=== PATIENT | female | born 1950 | race Caucasian/White ===

== ENCOUNTER 2016-05-21 16:13 | Emergency (ER) | payer MEDICARE ==
[~2016-05-21] VITALS: Ht 157.5 cm; Wt 75.2 kg
[~2016-05-21 16:13] MED LIST: KETO10 PO; MULTCAP2 PO
[2016-05-21 16:20] VITALS: BP 185/95; PULSE 78; RESP 16; TEMP 98.1; O2SAT 96
[2016-05-21] MEDS ORDERED: NAPR220T95 PO (16:36)
--- NOTE | 2016-05-21 17:49 | RADHPO ---
EXAM DATE/TIME: 05/21/2016 17:15 [facility] COMPARISON: No previous studies available for comparison. INDICATIONS : Low back pain with no history of trauma. MEDICAL HISTORY : None. SURGICAL HISTORY : None. ENCOUNTER: Initial ACUITY: 1 month PAIN SCORE: 7/10 LOCATION: Bilateral back FINDINGS: There are five non-rib bearing vertebral bodies. The vertebral bodies are in normal alignment withou t evidence of subluxation or scoliosis. Vacuum disc phenomenon at the lumbosacral junction. No acute fracture or listhesis. Surgical clips in the right upper abdominal quadrant are characteristic of aneesh or cholecystectomy. CONCLUSION: 1. Degenerative disc disease most prominent at the lumbosacral junction with loss of disc height and vacuum disc phenomenon. 2. No acute fracture. Vidal Aguero MD on May 21, 2016 at 17:46 Board Certified Radiologist. This report was verified electronically.
--- NOTE | 2016-05-21 17:51 | RADHPO ---
EXAM DATE/TIME: 05/21/2016 17:17 [facility] COMPARISON: No previous studies available for comparison. INDICATIONS : Right hip pain with no history of trauma. MEDICAL HISTORY : None. SURGICAL HISTORY : None. ENCOUNTER: Initial ACUITY: 2 weeks PAIN SCORE: 7/10 LOCATION: Right hip FINDINGS: Examination of the right hip was performed with AP Pelvis. The primary and secondary trabecular augusto bushra of the femoral neck is intact. The hip joint is of normal width without significant sclerosis or bony hypertrophy. The acetabulum is grossly intact. Well-corticated ossification adjacent to the gr eater trochanter is characteristic of an accessory ossification or old avulsion injury. There is some calcification adjacent to the lesser trochanter as well characteristic of calcific tendinopathy CONCLUSION: 1. No acute fracture. 2. Well-corticated ossification adjacent to the greater trochanter characteristic of an old avulsion injury or accessory ossification. 3. Calcific tendinopathy in the region of the lesser trochanter Vidal Aguero MD on May 21, 2016 at 17:48 Board Certified Radiologist. This report was verified electronically.
--- NOTE | 2016-05-21 18:04 | RADHPO ---
EXAM DATE/TIME: 05/21/2016 17:22 [facility] COMPARISON: No previous studies available for comparison. INDICATIONS : Neck pain with no history of trauma. MEDICAL HISTORY : None. SURGICAL HISTORY : None. ENCOUNTER: Initial ACUITY: 3 weeks PAIN SCORE: 9/10 LOCATION: Bilateral neck FINDINGS: Two projection examination was performed. There is multilevel degenerative disc disease with loss of disc height most prominent at C3-4, C5-6 and C6-7. Prominent anterior spurs are most obvious at C5-6 and C6-7. Grade 1 anterolisthesis of C2 on 3, C3 on 4 and C4-5 is probably due to marked facet hypert rophy and degeneration. Vertebral body heights are maintained without acute fracture. Prevertebral soft tissues are within no rmal limits. Dens is intact and the lateral masses are symmetric. CONCLUSION: 1. Multilevel degenerative disc disease with loss of disc height at C3-4, C5-6 and C6-7. 2. Grade 1 anterolisthesis of C2 on 3, C3 on 4 and C4 on 5 probably due to marked facet hypertrophy a nd degeneration. 3. No acute fracture. Vidal Aguero MD on May 21, 2016 at 18:01 Board Certified Radiologist. This report was verified electronically.
[2016-05-21] MEDS ORDERED: PRED20 PO (18:07)
--- NOTE | 2016-05-21 18:07 | PD ---
HPI Chief Complaint: Musculoskeletal Complaint Time Seen by Provider: 16:54 Travel History International Travel<30 days: No Contact w/Intl Traveler<30days: No Traveled to known affect area: No History of Present Illness HPI Patient 66-year-old female presents emergency department for pain she first noticed from her low back radiating down her right leg the past few months associated with some numbness and tingling in now with some numbness tingling of her right upper extremity as well. Patient states that she wanted to come in and be seen make sure it wasn't anything more severe. Denies any perianal numbness. Denies any weakness in hands or feet. She is able to walk although painfully. Denies any acute traumatic injury nor any sudden onset of pain. PFSH Past Medical History Arthritis: Yes (RIGHT great toe) Blood Disorders: No Anxiety: No Depression: No Heart Rhythm Problems: No Cancer: Yes (RENAL) Cardiac Catheterization: Yes ([address] HANKINS) Cardiovascular Problems: Yes (LBB-EKG) High Cholesterol: Yes Chest Pain: Yes Congestive Heart Failure: No Diabetes: No Diminished Hearing: No Endocrine: No Genitourinary: No Hypertension: Yes Immune Disorder: No Musculoskeletal: Yes Neurologic: No Psychiatric: No Reproductive: No Respiratory: No Myocardial Infarction: No Influenza Vaccination: No ?: Not Menopausal: Yes Past Surgical History Abdominal Surgery: Yes (gall bladder removed) Cholecystectomy: Yes Coronary Artery Bypass Graft: No Genitourinary Surgery: Yes (RIGHT NEPHRECTOMY) Oral Surgery: Yes (TONSILLECTOMY) Tonsillectomy: Yes Other Surgery: Yes Social History Alcohol Use: Yes (SOCIAL) Tobacco Use: No Substance Use: No Allergies-Medications (Allergen,Severity, Reaction): Coded Allergies: Sulfa (Verified Allergy, Mild, 05/25/16) Reported Meds & Prescriptions Reported Meds & Active Scripts Active [place] (Hydrocodone-Acetaminophen) 5-325 mg Tab 1 Tab PO Q6H PRN Prednisone 20 Mg Tab 60 Mg PO DAILY Reported Aleve (Naproxen Sodium) 220 Mg Tab 220 Mg PO BID PRN Review of Systems Except as stated in HPI: all other systems reviewed are Neg Physical Exam Narrative GENERAL: Well-developed well-nourished no apparent distress. SKIN: Warm and dry. HEAD: Atraumatic. Normocephalic. EYES: Pupils equal and round. No scleral icterus. No injection or drainage. ENT: No nasal bleeding or discharge. Mucous membranes pink and moist. NECK: Trachea midline. No JVD. CARDIOVASCULAR: Regular rate and rhythm. No murmur appreciated. RESPIRATORY: No accessory muscle use. Clear to auscultation. Breath sounds equal bilaterally. GASTROINTESTINAL: Abdomen soft, non-tender, nondistended. Hepatic and splenic margins not palpable. MUSCULOSKELETAL: No obvious deformities. No clubbing. No cyanosis. No edema. No midline CT or L-spine tenderness. There is no tenderness at either hip either shoulder either of either knee. She is able to ambulate with some antalgic gait. 5 out of 5 strength distally in all 4 extremities. Pulses motor and sensory intact distally in all 4 tremors. Compartments soft. No evidence of trauma. NEUROLOGICAL: Awake and alert. No obvious cranial nerve deficits. Motor grossly within normal limits. Normal speech. PSYCHIATRIC: Appropriate mood and affect; insight and judgment normal. Data Data Last Documented VS Orders Spine, Lumbar Comp W/Obliq (05/21/16 ) Hip, Uni(Ap&Lat) W Ap Pelvis (05/21/16 ) Spine, Cervical - Ltd (Ap&Lat) (05/21/16 ) Acetaminophen (Tylenol) (05/21/16 18:15) MDM Medical Decision Making Medical Screen Exam Complete: Yes Emergency Medical Condition: Yes Differential Diagnosis Degenerative disc disease, arthritis, radiculopathy cervical, radiculopathy lumbar. Narrative Course Patient roomed in the emergency department, she was given pain medicine and taken to x-ray showing the following results. Last 24 hours Impressions Lumbar Spine X-Ray 05/21/16 0000 Signed Impressions: Service Date/Time: Saturday, May 21, 2016 17:15 - CONCLUSION: 1. Degenerative disc disease most prominent at the lumbosacral junction with loss of disc height and vacuum disc phenomenon. 2. No acute fracture. Vidal Aguero MD Hip and Pelvis X-Ray 05/21/16 0000 Signed Impressions: Service Date/Time: Saturday, May 21, 2016 17:17 - CONCLUSION: 1. No acute fracture. 2. Well-corticated ossification adjacent to the greater trochanter characteristic of an old avulsion injury or accessory ossification. 3. Calcific tendinopathy in the region of the lesser trochanter Vidal Aguero MD Cervical Spine X-Ray 05/21/16 0000 Signed Impressions: Service Date/Time: Saturday, May 21, 2016 17:22 - CONCLUSION: 1. Multilevel degenerative disc disease with loss of disc height at C3-4, C5-6 and C6-7. 2. Grade 1 anterolisthesis of C2 on 3, C3 on 4 and C4 on 5 probably due to marked facet hypertrophy and degeneration. 3. No acute fracture. Vidal Aguero MD Discussed findings with the patient and recommended following up the primary care physician for consideration of MRIs of her symptoms do not resolve pH she was placed on steroids. Discussed with her return to ED criteria. She has no significant evidence for cauda equina and no indication for further workup here in the emergency department. We'll place on short course steroids. Diagnosis Primary Impression: DDD (degenerative disc disease), lumbar Additional Impression: DDD (degenerative disc disease), cervical Additional Instructions: Multiple slipped disks in the lumbar region and vacuum effect, loose causing her lower extremity symptoms. Patient has significant arthritis in her cervical spine as well a be leading to upper extremity symptoms. May benefit from outpatient MRI. Scripts Hydrocodone-Acetaminophen ([place])5-325 mg Tab1 Tab PO Q6H PRN (PAIN) #10 TAB Ref 0 Prov:Dany Vasquez MD 05/21/16 Prednisone 20 Mg Tab60 Mg PO DAILY #5 TAB Ref 0 Prov:Dany Vasquez MD 05/21/16 Disposition: 01 DISCHARGE HOME Condition: Stable Dany Vasquez MD May 21, 2016 18:07
[2016-05-21] MEDS ORDERED: NORC5TAB PO (18:15)
[2016-05-21] MEDS ORDERED: ACETAMINOPHEN 325 MG TAB PO ONE (18:15)
--- NOTE | 2016-05-21 18:15 | PD ---
HPI Chief Complaint: Musculoskeletal Complaint Time Seen by Provider: 16:54 Travel History International Travel<30 days: No Contact w/Intl Traveler<30days: No Traveled to known affect area: No PFSH Past Medical History Arthritis: Yes (RIGHT great toe) Blood Disorders: No Anxiety: No Depression: No Heart Rhythm Problems: No Cancer: Yes (RENAL) Cardiac Catheterization: Yes ([address] HANKINS) Cardiovascular Problems: Yes (LBB-EKG) High Cholesterol: Yes Chest Pain: Yes Congestive Heart Failure: No Diabetes: No Diminished Hearing: No Endocrine: No Genitourinary: No Hypertension: Yes Immune Disorder: No Musculoskeletal: Yes Neurologic: No Psychiatric: No Reproductive: No Respiratory: No Myocardial Infarction: No Influenza Vaccination: No ?: Not Menopausal: Yes Past Surgical History Abdominal Surgery: Yes (gall bladder removed) Cholecystectomy: Yes Coronary Artery Bypass Graft: No Genitourinary Surgery: Yes (RIGHT NEPHRECTOMY) Oral Surgery: Yes (TONSILLECTOMY) Tonsillectomy: Yes Other Surgery: Yes Social History Alcohol Use: Yes (SOCIAL) Tobacco Use: No Substance Use: No Allergies-Medications (Allergen,Severity, Reaction): Coded Allergies: Sulfa (Verified Allergy, Mild, 05/25/16) Reported Meds & Prescriptions Reported Meds & Active Scripts Active [place] (Hydrocodone-Acetaminophen) 5-325 mg Tab 1 Tab PO Q6H PRN Prednisone 20 Mg Tab 60 Mg PO DAILY Reported Aleve (Naproxen Sodium) 220 Mg Tab 220 Mg PO BID PRN Data Data Last Documented VS Orders Spine, Lumbar Comp W/Obliq (05/21/16 ) Hip, Uni(Ap&Lat) W Ap Pelvis (05/21/16 ) Spine, Cervical - Ltd (Ap&Lat) (05/21/16 ) Acetaminophen (Tylenol) (05/21/16 18:15) MDM Medical Decision Making Medical Screen Exam Complete: Yes Emergency Medical Condition: Yes Diagnosis Primary Impression: DDD (degenerative disc disease), lumbar Additional Impression: DDD (degenerative disc disease), cervical Referrals: Gordon Chow MD (PCP) 3 days Patient Instructions: General Instructions, Degenerative Disc Disease (ED) Departure Forms: Tests/Procedures Additional Instructions: Multiple slipped disks in the lumbar region and vacuum effect, loose causing her lower extremity symptoms. Patient has significant arthritis in her cervical spine as well a be leading to upper extremity symptoms. May benefit from outpatient MRI. Med/Other Pt SpecificInfo: Prescription(s) given Scripts Hydrocodone-Acetaminophen ([place])5-325 mg Tab1 Tab PO Q6H PRN (PAIN) #10 TAB Ref 0 Prov:Dany Vasquez MD 05/21/16 Prednisone 20 Mg Tab60 Mg PO DAILY #5 TAB Ref 0 Prov:Dany Vasquez MD 05/21/16 Disposition: 01 DISCHARGE HOME Condition: Stable Dany Vasquez MD May 21, 2016 18:15 Prednisone 20 Mg Tab60 Mg PO DAILY #5 TAB Ref 0 Prov:Dany Vasquez MD 05/21/16 Disposition: 01 DISCHARGE HOME Condition: Stable Dany Vasquez MD May 21, 2016 18:15
[2016-07-18] MEDS ORDERED: TRAM50TA PO (12:31)
[2016-07-25] MEDS ORDERED: HYDR-4107 PO (13:59)
[2016-07-31] MEDS ORDERED: CIPR250T52 PO ×2 (09:15→09:18)
[2016-07-31] MEDS ORDERED: HYDR-4107 PO (09:16)
[2016-08-27] MEDS ORDERED: HYDR-3516 (14:30)
[2016-08-27] MEDS ORDERED: NAPR220C22 PO (14:30)
[2016-08-27] MEDS ORDERED: ZINC10LO4 PO (14:32)
[2016-08-27] MEDS ORDERED: MULTTAB67 PO (14:32)
[2016-08-27] MEDS ORDERED: FIBE625T10 PO (14:32)
[2016-08-27] MEDS ORDERED: HYDR-4107 PO (15:09)
== END 2016-05-21 18:27 | disposition home or self-care (01) ==
LOC: PHEFT 16:13
DX: M51.36 Other intervertebral disc degeneration, lumbar region (principal); E78.00 Pure hypercholesterolemia, unspecified; I10 Essential (primary) hypertension
CPT/HCPCS: 72040; 72110; 73502; 99284

== ENCOUNTER 2016-05-25 08:24 | Inpatient (IN) | payer MEDICARE ==
[~2016-05-25] VITALS: Ht 157.5 cm; Wt 78.9 kg
[~2016-05-25 08:24] MED LIST changes: -KETO10 PO; -MULTCAP2 PO; +NAPR220T95 PO; +NORC5TAB PO; +PRED20 PO
[2016-05-25 08:38] VITALS: BP 111/62; PULSE 43; RESP 22; TEMP 98.4; O2SAT 99
[2016-05-25 09:26] VITALS: BP 145/75; PULSE 56; RESP 16; O2SAT 98
[2016-05-25] MEDS ORDERED: ONDANSETRON HCL 4 MG/2 ML VIAL IV ONE (10:00)
[2016-05-25] MEDS ORDERED: SODIUM CHLOR 0.9% 1000 ML INJ 1,000 ML IV SCH (10:00)
[2016-05-25] MEDS ORDERED: MORPHINE SULFATE 4 MG/ML INJ IV PUSH ONE (10:00)
[2016-05-25] MEDS ORDERED: FAMOTIDINE 20 MG/2 ML VIAL IV PUSH STA (10:00)
[2016-05-25 10:21] LABS: BLOOD, URINE NEG (NEG); GLUCOSE,URINE NEG (NEG); KETONE, URINE NEG (NEG); NITRITE,URINE NEG (NEG); PH, URINE 5.5 (5.0-8.5)
[2016-05-25 10:23] LABS: AUTOMATED NEUTROPHIL # 8.2 TH/MM3 (1.8-7.7); BASOPHIL # 0.1 TH/MM3 (0-0.2); BASOPHIL % 0.5 % (0.0-2.0); EOSINOPHIL # 0.1 TH/MM3 (0-0.4); EOSINOPHIL % 1.2 % (0.0-4.0); HEMATOCRIT 42.3 % (35.0-46.0); LYMPH % 18.5 % (9.0-44.0); MEAN CELL VOLUME 86.7 FL (80.0-100.0); MEAN CORPUSCULAR HEMOGLOBIN 28.2 PG (27.0-34.0); MEAN CORPUSCULAR HGB CONC 32.5 % (32.0-36.0); MONO % 5.3 % (0.0-8.0); NEUT % 74.5 % (16.0-70.0); PLATELET COUNT 276 TH/MM3 (150-450); RED BLOOD COUNT 4.88 MIL/MM3 (4.00-5.30); RED CELL DISTRIBUTION WIDTH 13.3 % (11.6-17.2)
[2016-05-25 10:24] LABS: HEMO FLAGS DIFF FINAL
[2016-05-25 10:29] LABS: METHOD OF COLLECTION CLEAN CATCH; URINE COLOR YELLOW (YELLW/STRAW); WBC, URINE 0-2 /hpf (0-5)
--- NOTE | 2016-05-25 10:37 | PD ---
HPI Chief Complaint: Abdominal Pain Time Seen by Provider: 09:49 Travel History International Travel<30 days: No Contact w/Intl Traveler<30days: No Traveled to known affect area: No History of Present Illness HPI Is a 66 year-old woman who presents to the emergency department complaining of epigastric abdominal pain associated with nausea this started early this morning. She is a history of pancreatitis and states this feels somewhat similar. She otherwise has been feeling generally well and healthy. Some but no clear etiology for her previous episodes were identified. She had her gallbladder taken out when she had a right nephrectomy in 2009. She drinks alcohol rarely. She's not had any change in her bowel movements. She otherwise had been feeling generally well and healthy. She was seen earlier this week for back pain, and was given a prescription for steroids and for opiates. She is not taking any NSAIDs. She does take medicine for GERD, sounds like ranitidine. History Past Medical History Narrative Medical Hypertension GERD Known left bundle-branch block Menopausal: Yes Social History Alcohol Use: Yes (SOCIAL) Tobacco Use: No Allergies-Medications (Allergen,Severity, Reaction): Coded Allergies: Sulfa (Verified Allergy, Mild, 05/25/16) Reported Meds & Prescriptions Reported Meds & Active Scripts Active [place] (Hydrocodone-Acetaminophen) 5-325 mg Tab 1 Tab PO Q6H PRN Prednisone 20 Mg Tab 60 Mg PO DAILY Reported Aleve (Naproxen Sodium) 220 Mg Tab 220 Mg PO BID PRN Review of Systems Except as stated in HPI: all other systems reviewed are Neg Physical Exam Narrative GENERAL: Well-appearing 66 year-old woman, appears uncomfortable but nontoxic. SKIN: Warm and dry. HEAD: Atraumatic. Normocephalic. EYES: Pupils equal and round. No scleral icterus. No injection or drainage. ENT: No nasal bleeding or discharge. Mucous membranes pink and moist. NECK: Trachea midline. No JVD. CARDIOVASCULAR: Regular rate and rhythm. No murmur appreciated. RESPIRATORY: No accessory muscle use. Clear to auscultation. Breath sounds equal bilaterally. GASTROINTESTINAL: Abdomen is flat and soft. She has moderate epigastric tenderness. No rebound or guarding. MUSCULOSKELETAL: No obvious deformities. No edema. NEUROLOGICAL: Awake and alert. No obvious cranial nerve deficits. Motor grossly within normal limits. Normal speech. PSYCHIATRIC: Appropriate mood and affect; insight and judgment normal. Data Data Last Documented VS Vital Signs Date Time Temp Pulse Resp B/P Pulse Ox O2 Delivery O2 Flow Rate FiO2 05/25/16 09:26 56 16 145/75 98 05/25/16 08:38 98.4 Room Air Orders Complete Blood Count With Diff (05/25/16 10:00) Comprehensive Metabolic Panel (05/25/16 10:00) Lipase (05/25/16 10:00) Ua Includes Microscopic (05/25/16 10:00) Iv Access Insert/Monitor (05/25/16 10:00) Sodium Chlor 0.9% 1000 Ml Inj (Ns 1000 M (05/25/16 10:00) Ondansetron Inj (Zofran Inj) (05/25/16 10:00) Morphine Inj (Morphine Inj) (05/25/16 10:00) Famotidine Inj (Pepcid Inj) (05/25/16 10:00) Admit Order (Ed Use Only) (05/25/16 ) Labs Laboratory Tests Test 05/25/16 10:09 White Blood Count 11.0 TH/MM3 Red Blood Count 4.88 MIL/MM3 Hemoglobin 13.8 GM/DL Hematocrit 42.3 % Mean Corpuscular Volume 86.7 FL Mean Corpuscular Hemoglobin 28.2 PG Mean Corpuscular Hemoglobin 32.5 % Concent Red Cell Distribution Width 13.3 % Platelet Count 276 TH/MM3 Mean Platelet Volume 8.0 FL Neutrophils (%) (Auto) 74.5 % Lymphocytes (%) (Auto) 18.5 % Monocytes (%) (Auto) 5.3 % Eosinophils (%) (Auto) 1.2 % Basophils (%) (Auto) 0.5 % Neutrophils # (Auto) 8.2 TH/MM3 Lymphocytes # (Auto) 2.0 TH/MM3 Monocytes # (Auto) 0.6 TH/MM3 Eosinophils # (Auto) 0.1 TH/MM3 Basophils # (Auto) 0.1 TH/MM3 CBC Comment DIFF FINAL Differential Comment Urine Collection Type CLEAN CATCH Urine Color YELLOW Urine Turbidity CLEAR Urine pH 5.5 Urine Specific [place] 1.025 Urine Protein TRACE mg/dL Urine Glucose (UA) NEG mg/dL Urine Ketones NEG mg/dL Urine Occult Blood NEG Urine Nitrite NEG Urine Bilirubin NEG Urine Leukocyte Esterase NEG Urine WBC 0-2 /hpf Urine Squamous Epithelial 6-8 /hpf Cells Urine Collection Time 10:09 Sodium Level 145 MEQ/L Potassium Level 3.7 MEQ/L Chloride Level 109 MEQ/L Carbon Dioxide Level 26.3 MEQ/L Anion Gap 10 MEQ/L Blood Urea Nitrogen 32 MG/DL Creatinine 1.20 MG/DL Estimat Glomerular Filtration 45 ML/MIN Rate Random Glucose 109 MG/DL Calcium Level 8.6 MG/DL Total Bilirubin 0.3 MG/DL Aspartate Amino Transf 99 U/L (AST/SGOT) Alanine Aminotransferase 77 U/L (ALT/SGPT) Alkaline Phosphatase 90 U/L Total Protein 6.8 GM/DL Albumin 3.6 GM/DL Lipase 15747 U/L [facility] Medical Decision Making Medical Screen Exam Complete: Yes Emergency Medical Condition: Yes Interpretation(s) LABS: CBC unremarkable. CMP remarkable for elevated BUN/creatinine Lipase 21,000 UA unremarkable. Differential Diagnosis Pancreatitis, gastritis, reflux, indigestion, other Narrative Course Medical decision making INITIAL: 66 year-old woman who presents to the emergency department complaining of epigastric abdominal pain, with nausea, suggestive of gastritis or pancreatitis. We'll check labs, fluids, pain control, reassess. Diagnosis Primary Impression: Acute pancreatitis Fuad Stein MD May 25, 2016 10:37
[2016-05-25 10:41] LABS: CHLORIDE 109 MEQ/L (98-107); POTASSIUM 3.7 MEQ/L (3.5-5.1); SODIUM (NA) 145 MEQ/L (136-145)
[2016-05-25 10:44] LABS: ANION GAP 10 MEQ/L (5-15); BICARBONATE 26.3 MEQ/L (21.0-32.0)
[2016-05-25 10:45] LABS: BLOOD UREA NITROGEN 32 MG/DL (7-18)
[2016-05-25 10:47] LABS: ALT (GPT) 77 U/L (10-53); AST (GOT) 99 U/L (15-37); GLOMERULAR FILTRATION RATE 45 ML/MIN (>89)
[2016-05-25 10:49] LABS: TOTAL BILIRUBIN ADULT 0.3 MG/DL (0.2-1.0)
[2016-05-25 10:50] LABS: ALKALINE PHOSPHATASE 90 U/L (45-117)
[2016-05-25] MEDS ORDERED: NALOXONE HCL 0.4 MG/ML AMP IV PRN (11:15)
[2016-05-25] MEDS ORDERED: MORPHINE SULFATE 4 MG/ML INJ IV PRN (11:15)
[2016-05-25] MEDS: NS + KCL 20 MEQ INJ 1,000 ML IV SCH ×2 (11:36→21:48)
[2016-05-25 13:05] VITALS: BP 126/72; PULSE 78; RESP 18; O2SAT 98
[2016-05-25] MEDS: MORPHINE SULFATE 4 MG/ML INJ IV PRN ×2 (13:19→19:59)
[2016-05-25 14:30] VITALS: BP 142/74; PULSE 58; RESP 20; TEMP 96; O2SAT 97
[2016-05-25 16:00] VITALS: BP 122/75; PULSE 60; RESP 20; TEMP 97.2; O2SAT 97
--- NOTE | 2016-05-25 18:17 | HHI.HP ---
cc: Gordon Chow MD [facility] Gordon Chow MD Admission Diagnosis acute pancreatitis Diagnoses: (1) Acute pancreatitis Chief Complaint: Abdominal pain Travel History International Travel<30 Days: No Contact w/Intl Traveler <30 Da: No Traveled to Known Affected Are: No History of Present Illness The patient is a 66-year-old female who presented to the emergency department complaining of severe midepigastric abdominal pain associated with nausea. The pain started this morning. She states that she had been feeling well yesterday. No vomiting, diarrhea, constipation. She has had acute pancreatitis in the past requiring hospitalization. She has had a cholecystectomy. Only reports occasional alcohol use. She states that her pain is currently well controlled with morphine. Review of Systems Constitutional: DENIES: Fever, Chills, Night Sweats Eyes: DENIES: Blurred vision, Vision loss Ears, nose, mouth, throat: DENIES: Hearing loss Respiratory: DENIES: Cough, Wheezing, Sputum production, Shortness of breath Cardiovascular: DENIES: Chest pain, Palpitations, Dyspnea on Exertion, Lower Extremity Edema Gastrointestinal: COMPLAINS OF: Abdominal pain, Nausea, DENIES: Constipation, Diarrhea, Vomiting Genitourinary: DENIES: Urinary frequency, Urinary incontinence, Urgency, Hematuria, Dysuria, Nocturia Musculoskeletal: DENIES: Joint pain, Muscle aches Integumentary: DENIES: Pruritus, Rash Hematologic/lymphatic: DENIES: Bruising Neurologic: DENIES: Headache Past Family Social History Past Medical History Hypertension GERD Left bundle branch block History of pancreatitis History of kidney cancer Degenerative disc disease Past Surgical History Cholecystectomy Right nephrectomy Reported Medications [place] (Hydrocodone-Acetaminophen) 5-325 mg Tab 1 Tab PO Q6H PRN Prednisone 20 Mg Tab 60 Mg PO DAILY Aleve (Naproxen Sodium) 220 Mg Tab 220 Mg PO BID PRN Allergies: Coded Allergies: Sulfa (Verified Allergy, Mild, 05/25/16) Family History Father of lung cancer at age 83. Family history also significant for hypertension. Social History Patient denies tobacco or illicit drug use. Reports occasional alcohol use. Physical Exam Vital Signs Vital Signs Date Time Temp Pulse Resp B/P Pulse Ox O2 Delivery O2 Flow Rate FiO2 05/25/16 16:00 97.2 60 20 122/75 97 05/25/16 14:30 96.0 58 20 142/74 97 05/25/16 13:05 78 18 126/72 98 Room Air 05/25/16 09:26 56 16 145/75 98 05/25/16 08:38 98.4 43 22 111/62 99 Room Air Physical Exam GENERAL: Well-nourished, well-developed female in no acute distress. HEENT: Normocephalic, atraumatic. Pupils equal, round and reactive. Extraocular movements intact. No scleral icterus. No injection or drainage. Oropharynx is clear. Mucous membranes are moist. CARDIOVASCULAR: Regular rate and rhythm without murmurs, gallops, or rubs. RESPIRATORY: Clear to auscultation. No wheezes, rales, or rhonchi. Breathing is non-labored. GASTROINTESTINAL: Abdomen soft, mildly tender in the midepigastric region, nondistended. EXTREMITIES: No lower extremity edema. No calf tenderness. PSYCH: Alert and oriented x 3. Laboratory Laboratory Tests Test 05/25/16 10:09 White Blood Count 11.0 Red Blood Count 4.88 Hemoglobin 13.8 Hematocrit 42.3 Mean Corpuscular Volume 86.7 Mean Corpuscular Hemoglobin 28.2 Mean Corpuscular Hemoglobin 32.5 Concent Red Cell Distribution Width 13.3 Platelet Count 276 Mean Platelet Volume 8.0 Neutrophils (%) (Auto) 74.5 Lymphocytes (%) (Auto) 18.5 Monocytes (%) (Auto) 5.3 Eosinophils (%) (Auto) 1.2 Basophils (%) (Auto) 0.5 Neutrophils # (Auto) 8.2 Lymphocytes # (Auto) 2.0 Monocytes # (Auto) 0.6 Eosinophils # (Auto) 0.1 Basophils # (Auto) 0.1 CBC Comment DIFF FINAL Differential Comment Urine Collection Type CLEAN CATCH Urine Color YELLOW Urine Turbidity CLEAR Urine pH 5.5 Urine Specific [place] 1.025 Urine Protein TRACE Urine Glucose (UA) NEG Urine Ketones NEG Urine Occult Blood NEG Urine Nitrite NEG Urine Bilirubin NEG Urine Leukocyte Esterase NEG Urine WBC 0-2 Urine Squamous Epithelial 6-8 Cells Urine Collection Time 10:09 Sodium Level 145 Potassium Level 3.7 Chloride Level 109 Carbon Dioxide Level 26.3 Anion Gap 10 Blood Urea Nitrogen 32 Creatinine 1.20 Estimat Glomerular Filtration 45 Rate Random Glucose 109 Calcium Level 8.6 Total Bilirubin 0.3 Aspartate Amino Transf 99 (AST/SGOT) Alanine Aminotransferase 77 (ALT/SGPT) Alkaline Phosphatase 90 Total Protein 6.8 Albumin 3.6 Lipase 20913 Result Diagram: 05/25/16 1009 05/25/16 1009 Assessment and Plan Assessment and Plan 1. Acute pancreatitis: Lipase is significantly elevated. Keep nothing by mouth. Continue IV fluids, pain medication. Consult patient's hoist operator, Dr. Luna. 2. Hypertension: Patient is not currently on medications. Monitor blood pressure. 3. DVT prophylaxis: YODIT Ceja. William Brown MD May 25, 2016 18:17
[2016-05-25 20:00] VITALS: BP 147/78; PULSE 56; RESP 20; TEMP 97.4; O2SAT 98
[2016-05-25] MEDS: ONDANSETRON HCL 4 MG/2 ML VIAL IVP PRN (20:06)
[2016-05-26] VITALS: BP 128/66; PULSE 60; RESP 20; TEMP 98; O2SAT 96
[2016-05-26 04:00] VITALS: BP 117/69; PULSE 60; RESP 20; TEMP 97.8; O2SAT 94
--- NOTE | 2016-05-26 07:14 | PD.CONS ---
GI Consult GI Consult ASSESSMENT/PLAN: 1. Acute Pancreatitis 2. Abdominal pain 3. Hx renal cancer PLAN: 1. Bolus LR 1L 2. Protonix 40 mg once per day 3. CT abdo and pelvis 4. Labs, lipid profile 5. Start CLD after Ct 6. Will need outpt follow up with Dr Luna - EGD possible Endoscopic ultrasound (outpt) It was a pleasure seeing Rosy Guido . Thank you for this consult. Entered by: Gaurav Crespo MD May 26, 2016 07:14
[2016-05-26] MEDS ORDERED: LACTATED RINGER'S 1000 ML INJ 1,000 ML IV ONE (07:15)
[2016-05-26 08:00] VITALS: BP 147/76; PULSE 58; RESP 16; TEMP 98.4; O2SAT 97
[2016-05-26 08:23] LABS: CHLORIDE 109 MEQ/L (98-107); SODIUM (NA) 143 MEQ/L (136-145)
[2016-05-26 08:30] LABS: ANION GAP 7 MEQ/L (5-15); BICARBONATE 27.3 MEQ/L (21.0-32.0)
[2016-05-26 08:37] LABS: ALKALINE PHOSPHATASE 112 U/L (45-117); ALT (GPT) 253 U/L (10-53); AST (GOT) 144 U/L (15-37); BLOOD UREA NITROGEN 19 MG/DL (7-18); GLOMERULAR FILTRATION RATE 50 ML/MIN (>89); TOTAL BILIRUBIN ADULT 0.5 MG/DL (0.2-1.0)
[2016-05-26] MEDS: ONDANSETRON HCL 4 MG/2 ML VIAL IVP PRN ×2 (09:00→20:30)
[2016-05-26] MEDS: NS + KCL 20 MEQ INJ 1,000 ML IV SCH (09:03)
[2016-05-26] MEDS: PANTOPRAZOLE SOD 40 MG DELAYED RELEASE TAB PO SCH (09:07)
[2016-05-26] MEDS ORDERED: DIATRIZOATE MEGLUM/DIATRIZOATE SOD 9 ML CUP PO ONE (10:15)
[2016-05-26 10:49] LABS: HDL CHOLESTEROL 59.8 MG/DL (40.0-60.0)
[2016-05-26 12:00] VITALS: BP 154/81; PULSE 65; RESP 16; TEMP 98.4; O2SAT 97
[2016-05-26] MEDS: LACTATED RINGER'S 1000 ML INJ 1,000 ML IV SCH ×2 (13:41→18:27)
--- NOTE | 2016-05-26 14:11 | RADHPO ---
EXAM DATE/TIME: 05/26/2016 12:09 [facility] COMPARISON: No previous studies available for comparison. INDICATIONS : Epigrastic pain, pancreatitis. IV CONTRAST: 61 cc Omnipaque 350 (iohexol) IV ORAL CONTRAST: No oral contrast ingested. RADIATION DOSE: 13.99 CTDIvol (mGy) MEDICAL HISTORY : Cardiovascular disease. Hypertension. SURGICAL HISTORY : Nephrectomy, right. Cholecystectomy. ENCOUNTER: Initial ACUITY: 2 days PAIN SCALE: 4/10 LOCATION: epigrastic TECHNIQUE: Volumetric scanning of the abdomen and pelvis was performed. Using automated exposure control and ad justment of the mA and/or kV according to patient size, radiation dose was kept as low as reasonably achievable to obtain optimal diagnostic quality images. FINDINGS: LOWER LUNGS: There is mild linear airspace consolidation identified within the left lower lobe associated with a s mall left-sided pleural effusion. LIVER: Homogeneous density without lesion. There is no dilation of the biliary tree. The patient is status post prior cholecystectomy. SPLEEN: Normal size without lesion. PANCREAS: Within normal limits. KIDNEYS: The right kidney is surgically absent. The left kidney is unremarkable. ADRENAL GLANDS: Within normal limits. VASCULAR: There is no aortic aneurysm. BOWEL/MESENTERY: There is asymmetric wall thickening identified within the cecum. Recommend correlation with colonosco py to exclude abnormality within this region. This could represent normal variant versus inflammatory /infection versus neoplasm. Scattered diverticuli identified within the sigmoid colon. ABDOMINAL WALL: Within normal limits. RETROPERITONEUM: There is no lymphadenopathy. BLADDER: No wall thickening or mass. REPRODUCTIVE: Within normal limits. INGUINAL: There is no lymphadenopathy or hernia. MUSCULOSKELETAL: Within normal limits for patient age. CONCLUSION: 1. There is a small area of left lower lobe airspace consolidation with adjacent small pleural effusi on. The CT appearance of the pancreas is unremarkable. 2. Asymmetric wall thickening involving the cecum. This should be correlated with colonoscopy to exc lude neoplasm. 3. Diverticulosis of the sigmoid colon without evidence of current inflammation. Keren Begum MD on May 26, 2016 at 14:04 Board Certified Radiologist. This report was verified electronically.
--- NOTE | 2016-05-26 15:01 | HHI.PR ---
Subjective Remarks Follow up pancreatitis. Patient states that her abdominal pain is better. She is reporting cramping pain in both legs. No nausea/vomiting. Objective Vitals Vital Signs Date Time Temp Pulse Resp B/P Pulse Ox O2 Delivery O2 Flow Rate FiO2 05/26/16 12:00 98.4 65 16 154/81 97 05/26/16 08:00 98.4 58 16 147/76 97 05/26/16 07:58 16 05/26/16 04:00 97.8 60 20 117/69 94 05/26/16 00:00 98.0 60 20 128/66 96 05/25/16 20:00 97.4 56 20 147/78 98 05/25/16 16:00 97.2 60 20 122/75 97 I/O 05/25/16 05/25/16 05/25/16 05/26/16 05/26/16 05/26/16 07:00 15:00 23:00 07:00 15:00 23:00 Intake Total 1000 ml 0 ml 0 ml Balance 1000 ml 0 ml 0 ml Intake Oral 0 ml 0 ml IV Total 1000 ml # Voids 1 1 3 # Bowel Movements 1 0 Result Diagram: 05/25/16 1009 05/26/16 0735 Imaging Last Impressions Abdomen/Pelvis CT 05/26/16 0000 Signed Impressions: Service Date/Time: Thursday, May 26, 2016 12:09 - CONCLUSION: 1. There is a small area of left lower lobe airspace consolidation with adjacent small pleural effusion. The CT appearance of the pancreas is unremarkable. 2. Asymmetric wall thickening involving the cecum. This should be correlated with colonoscopy to exclude neoplasm. 3. Diverticulosis of the sigmoid colon without evidence of current inflammation. Keren Begum MD Objective Remarks General: No acute distress. Heart: Regular rate and rhythm. No murmur. Lungs: Clear to auscultation bilaterally. No wheezes, rales, or rhonchi. Breathing is nonlabored. Abdomen: Soft, nontender, nondistended. Extremities: No lower extremity edema. No calf tenderness. Psych: Alert and oriented. Urinary Catheter: No Vascular Central Line Catheter: No A/P Problem List: (1) Acute pancreatitis ICD Code: K85.90 Status: Acute (2) Transaminitis ICD Code: R74.0 Status: Acute Assessment and Plan 1. Acute pancreatitis: Lipase is improving. Start clear liquid diet. Continue IV fluids, pain medication. Discussed with Dr. Newman, gastroenterology. CT abdomen/pelvis reviewed. 2. Hypertension: Patient is not currently on medications. Monitor blood pressure. 3. GI prophylaxis: Protonix. 4. DVT prophylaxis: SCDs, YODIT hose. 5. Lung consolidation seen on CT: Patient is asymptomatic. She has been afebrile. Denies cough or dyspnea. Add incentive spirometry. 6. Asymmetric wall thickening of the cecum: Management per gastroenterology. Radiology has recommended colonoscopy to exclude neoplasm. This was discussed with the patient. William Brown MD May 26, 2016 15:01
[2016-05-26 16:00] VITALS: BP 156/85; PULSE 74; RESP 18; TEMP 98; O2SAT 97
--- NOTE | 2016-05-26 17:19 | MB ---
cc: GORDON KIRK KETUL DATE OF CONSULTATION 05/26/2016 DATE OF 1950 ENDOSCOPIST Gaurav Newman MD PRIMARY LOGISTICS ACCOUNT MANAGER Dr. Cameron Luna. PRIMARY CARE PHYSICIAN Dr. Gordon Kirk. REASON FOR CONSULTATION Pancreatitis, abdominal pain. HISTORY OF THE PRESENT ILLNESS This is a very pleasant 66-year-old female who was in her general state of_ health earlier this week, began having pain in the back radiating down the leg as well as having some radiculopathy symptoms. She presented to the emergency room and underwent back x-rays which were significant for some mild degenerative disk disease. She was placed on prednisone and a PPI therapy. Several days later she began having midepigastric abdominal pain radiating to the right upper quadrant and towards her back, very similar to symptoms she had had with a distant history of distant pancreatitis attack therefore she came into the emergency room. Further workup was done [place] [id number] and her clinical symptoms, she was admitted to the hospital with diagnosis of acute pancreatitis. GI was consulted to help in the workup and management. She denies any fevers or chills. No new medications. She denies any significant alcohol use. She rarely drinks one agata socially, often on her birthday. PAST MEDICAL HISTORY 1. History of renal cancer with a surgical nephrectomy. 2. History of gastroesophageal reflux disease. 3. Hypertension. 4. Left bundle branch block. PAST SURGICAL HISTORY 1. Cholecystectomy. ' 2. Right nephrectomy performed in 2009. MEDICATIONS At home currently are: 1. Prednisone 20 mg. 2. Suffern. 3. Aleve. ALLERGIES SULFA. FAMILY HISTORY Lung cancer in her father, otherwise no GI malignancy. SOCIAL HISTORY Denies any illicit drug use. Denies tobacco use. Rare alcohol usage. REVIEW OF SYSTEMS A 12-point review of systems was obtained and primarily showed negative or noncontributory except for above-mentioned in the HPI. PHYSICAL EXAMINATION VITAL SIGNS: Are 97.8, 60, 20, 117/69, 94% on room air. GENERAL: Alert, oriented. No focal deficits. No acute distress. HEENT: Eyes, pupils equal, round, reactive to light. The patient normocephalic. Oral mucosa dry. NECK: Supple. Nontender. No carotid bruits. No JVD noted. LUNGS: Clear to auscultation. Nonlabored. CARDIOVASCULAR: Normal rate and rhythm. No murmurs. ABDOMEN: Soft and nondistended. Mildly tender in the epigastric region. No rebound appreciated. No hepatomegaly appreciated. Normal bowel sounds. No periumbilical or flank ecchymosis noted. GENITOURINARY: No lymphadenopathy. No CVA tenderness. MUSCULOSKELETAL: Normal range of motion. Slight stiffness of the lower extremities. SKIN: Warm and dry. Intact. NEUROLOGIC: Alert and oriented. No focal deficits. PSYCHIATRIC: Cooperative. Appropriate mood and affect. LABORATORY DATA WBC 11.0, hemoglobin 13.8, platelet count 276. Sodium 145, potassium 3.7, chloride 109, bicarbonate 26.3, BUN 32, creatinine 1.20. Calcium 8.6. Total bilirubin 0.3, AST 99, ALT 77. Alkaline phosphatase 90. Lipase 73087. IMPRESSION 1. Acute pancreatitis of unclear etiology. Wide differential diagnosis which include sludge/ debris, possibility of medication induced, less likely to be alcohol induced. 2. Abdominal pain secondary to above. 3. Gastroesophageal reflux disease. 4. Elevated LFTs secondary to above. 5. Acute kidney injury with a creatinine of 1.20. RECOMMENDATIONS 1. Aggressive IV hydration. Recommend a bolus of lactated Ringer's 1 liter now and then lactated Ringer's at 200 cc/hour. 2. Start Protonix 40 mg once a day. 3. Order a CT scan of the abdomen and pelvis with contrast. 4. Clear liquid diet as the patient's symptoms improve. 5. The patient will need outpatient follow up with Dr. Cameron Luna and we will consider further workup such as EGD and endoscopic ultrasound which ideally can be done outpatient. Thank you for allowing us to participate in the care of this patient. We will follow along with you and make further recommendations as per the patient's clinical course. MD DIAZ Gonzalez/LUCIANO /7:18 AM /4:24 PM [facility]
[2016-05-26] MEDS ORDERED: IOHEXOL 350 MG/ML 10 ML VIAL (for RAD DIAG) IV ONE ×2 (18:34→18:37)
[2016-05-26] MEDS: MORPHINE SULFATE 4 MG/ML INJ IV PRN (20:29)
[2016-05-26 21:18] VITALS: BP 151/82; PULSE 62; RESP 16; TEMP 98.3; O2SAT 93
[2016-05-27 00:18] VITALS: BP 149/83; PULSE 62; RESP 16; TEMP 98; O2SAT 95
[2016-05-27] MEDS: MORPHINE SULFATE 4 MG/ML INJ IV PRN (03:48)
[2016-05-27] MEDS: ONDANSETRON HCL 4 MG/2 ML VIAL IVP PRN (03:49)
[2016-05-27 04:04] VITALS: BP 145/80; PULSE 60; RESP 16; TEMP 98.1; O2SAT 92
[2016-05-27 07:57] LABS: AUTOMATED NEUTROPHIL # 5.2 TH/MM3 (1.8-7.7); BASOPHIL % 0.5 % (0.0-2.0); EOSINOPHIL # 0.2 TH/MM3 (0-0.4); EOSINOPHIL % 3.2 % (0.0-4.0); HEMO FLAGS DIFF FINAL; LYMPH % 18.9 % (9.0-44.0); LYMPHOCYTE # 1.4 TH/MM3 (1.0-4.8); MEAN CELL VOLUME 87.2 FL (80.0-100.0); MEAN CORPUSCULAR HEMOGLOBIN 28.5 PG (27.0-34.0); MEAN CORPUSCULAR HGB CONC 32.7 % (32.0-36.0); MONO % 9.2 % (0.0-8.0); NEUT % 68.2 % (16.0-70.0); PLATELET COUNT 242 TH/MM3 (150-450); RED BLOOD COUNT 4.36 MIL/MM3 (4.00-5.30); RED CELL DISTRIBUTION WIDTH 13.2 % (11.6-17.2); WHITE BLOOD COUNT 7.5 TH/MM3 (4.0-11.0)
[2016-05-27 08:00] VITALS: BP 158/79; PULSE 58; RESP 16; TEMP 98.1; O2SAT 94
[2016-05-27 08:10] LABS: MAGNESIUM 2.1 MG/DL (1.5-2.5)
[2016-05-27] MEDS: LACTATED RINGER'S 1000 ML INJ 1,000 ML IV SCH (08:21)
[2016-05-27 08:22] VITALS: RESP 18
[2016-05-27] MEDS: PANTOPRAZOLE SOD 40 MG DELAYED RELEASE TAB PO SCH (08:22)
--- NOTE | 2016-05-27 08:32 | RADHPO ---
EXAM DATE/TIME: 05/27/2016 08:12 [facility] COMPARISON: CT ABDOMEN W & W/O CONTRAST, August 16, 2009, 16:05. CT ABDOMEN & PELVIS W CONTRAST, May 26, 2016, 1 2:09. CHEST SINGLE AP, October 25, 2010, 10:24. INDICATIONS : Acute pancreatitis, pneumonia MEDICAL HISTORY : Pancreatitis. SURGICAL HISTORY : None. ENCOUNTER: Subsequent ACUITY: 3 days PAIN SCORE: 0/10 LOCATION: Bilateral chest FINDINGS: Single upright portable view of the chest demonstrates a left basilar airspace consolidation and flui d with blunting of the left costophrenic angle. The remainder the lungs are clear. The heart size is normal. Osseous structures are unremarkable. CONCLUSION: Persistent left basilar airspace consolidation and pleural fluid. Keren Begum MD on May 27, 2016 at 8:28 Board Certified Radiologist. This report was verified electronically.
[2016-05-27 08:38] LABS: CHLORIDE 104 MEQ/L (98-107); POTASSIUM 4.1 MEQ/L (3.5-5.1); SODIUM (NA) 142 MEQ/L (136-145)
[2016-05-27 08:42] LABS: ANION GAP 8 MEQ/L (5-15); BICARBONATE 29.7 MEQ/L (21.0-32.0); BLOOD UREA NITROGEN 15 MG/DL (7-18)
[2016-05-27 08:45] LABS: ALT (GPT) 173 U/L (10-53); AST (GOT) 55 U/L (15-37); GLOMERULAR FILTRATION RATE 50 ML/MIN (>89)
[2016-05-27 08:46] LABS: TOTAL BILIRUBIN ADULT 0.5 MG/DL (0.2-1.0)
[2016-05-27 08:48] LABS: ALKALINE PHOSPHATASE 135 U/L (45-117)
[2016-05-27] MEDS ORDERED: LEVA500T PO (09:51)
[2016-05-27] MEDS ORDERED: PANT40TA3 PO (09:51)
--- NOTE | 2016-05-27 09:52 | HHI.DCPOC ---
Discharge Care Plan Diagnosis: (1) Transaminitis (2) Acute pancreatitis (3) Pneumonia Goals to Promote Your Health * To prevent worsening of your condition and complications * To maintain your health at the optimal level Directions to Meet Your Goals Take your medications as prescribed Follow your dietary instruction Follow activity as directed Keep your appointments as scheduled Take your immunizations and boosters as scheduled If your symptoms worsen call your PCP, if no PCP go to Urgent Care Center or Emergency Room Smoking is Dangerous to Your Health. Avoid second hand smoke Call the 24-hour hour crisis hotline for domestic abuse at William Brown MD May 27, 2016 09:52
--- NOTE | 2016-05-27 09:56 | HHI.PR ---
Subjective Remarks Follow-up acute pancreatitis, transaminitis, pneumonia. Patient denies chest pain or dyspnea. Coughing, fever. Abdominal pain has resolved. Objective Vitals Vital Signs Date Time Temp Pulse Resp B/P Pulse Ox O2 Delivery O2 Flow Rate FiO2 05/27/16 08:22 18 05/27/16 04:04 98.1 60 16 145/80 92 05/27/16 00:18 98.0 62 16 149/83 95 05/26/16 21:18 98.3 62 16 151/82 93 05/26/16 16:00 98.0 74 18 156/85 97 05/26/16 12:00 98.4 65 16 154/81 97 I/O 05/26/16 05/26/16 05/26/16 05/27/16 05/27/16 05/27/16 07:00 15:00 23:00 07:00 15:00 23:00 Intake Total 0 ml 480 ml Balance 0 ml 480 ml Intake Oral 0 ml 480 ml # Voids 1 3 4 # Bowel Movements 0 0 Result Diagram: 05/27/16 0723 05/27/16 0723 Imaging Last Impressions Chest X-Ray 05/27/16 0000 Signed Impressions: Service Date/Time: Friday, May 27, 2016 08:12 - CONCLUSION: Persistent left basilar airspace consolidation and pleural fluid. Keren Begum MD Abdomen/Pelvis CT 05/26/16 0000 Signed Impressions: Service Date/Time: Thursday, May 26, 2016 12:09 - CONCLUSION: 1. There is a small area of left lower lobe airspace consolidation with adjacent small pleural effusion. The CT appearance of the pancreas is unremarkable. 2. Asymmetric wall thickening involving the cecum. This should be correlated with colonoscopy to exclude neoplasm. 3. Diverticulosis of the sigmoid colon without evidence of current inflammation. Keren Begum MD Objective Remarks General: No acute distress. Ambulating in the room. Heart: Regular rate and rhythm. No murmur. Lungs: Clear to auscultation bilaterally. No wheezes, rales, or rhonchi. Breathing is nonlabored. Abdomen: Soft, nontender, nondistended. Extremities: No lower extremity edema. No calf tenderness. Psych: Alert and oriented. Procedures None Urinary Catheter: No Vascular Central Line Catheter: No A/P Problem List: (1) Acute pancreatitis ICD Code: K85.90 Status: Resolved (2) Transaminitis ICD Code: R74.0 Status: Acute (3) Pneumonia ICD Code: J18.9 Status: Acute Assessment and Plan 1. Acute pancreatitis: Pain has resolved. Lipase is improving. Advance diet. Continue IV fluids, pain medication. CT abdomen/pelvis reviewed. 2. Hypertension: Patient is not currently on medications. Monitor blood pressure. 3. GI prophylaxis: Protonix. 4. DVT prophylaxis: SCDs, YODIT hose. 5. Pneumonia: Consolidation present on CT and chest x-ray. Patient is asymptomatic. She has been afebrile. Denies cough or dyspnea. Start antibiotics. 6. Asymmetric wall thickening of the cecum: Management per gastroenterology. Radiology has recommended colonoscopy to exclude neoplasm. This was discussed with the patient. Discharge Planning Discharge home in stable condition today if she tolerates her diet. Activity as tolerated. Regular diet. Discussed with patient to start with bland foods and increase diet slowly over the next few days. Follow-up with GI and PCP. William Brown MD May 27, 2016 09:56
[2016-05-27] MEDS ORDERED: LEVOFLOXACIN 500 MG TAB PO SCH (10:00)
[2016-07-18] MEDS ORDERED: TRAM50TA PO (12:31)
[2016-07-25] MEDS ORDERED: HYDR-4107 PO (13:59)
[2016-07-31] MEDS ORDERED: CIPR250T52 PO ×2 (09:15→09:18)
[2016-07-31] MEDS ORDERED: HYDR-4107 PO (09:16)
[2016-08-27] MEDS ORDERED: HYDR-3516 (14:30)
[2016-08-27] MEDS ORDERED: NAPR220C22 PO (14:30)
[2016-08-27] MEDS ORDERED: MULTTAB67 PO (14:32)
[2016-08-27] MEDS ORDERED: FIBE625T10 PO (14:32)
[2016-08-27] MEDS ORDERED: ZINC10LO4 PO (14:32)
[2016-08-27] MEDS ORDERED: HYDR-4107 PO (15:09)
== END 2016-05-27 10:48 | disposition home or self-care (01) | DRG 438 ==
LOC: PHED 08:24 → PHEDA 11:15 → PH3A 14:11
PROVIDERS: ADMIT Family Medicine; ATTEND Family Medicine
DX: K85.90 Acute pancreatitis without necrosis or infection, unspecified (principal); J18.9 Pneumonia, unspecified organism; N17.9 Acute kidney failure, unspecified; K21.9 Gastro-esophageal reflux disease without esophagitis; K63.89 Other specified diseases of intestine; Z85.528 Personal history of other malignant neoplasm of kidney; Z88.2 Allergy status to sulfonamides
CPT/HCPCS: 71010; 74177; 80053; 80061; 81001; 83690; 83735; 85025; 96361; 96374; 96375; J2270; J2405; J3480; J7030; J7120; Q9963; Q9967

== ENCOUNTER → 2016-08-06 | Outpatient (CLI) | payer MEDICARE ==
[~2016-08-06] MED LIST changes: +CIPR250T52 PO; +FIBE625T10 PO; +HYDR-3366 PO; +HYDR-3516; +HYDR-4107 PO; +MULTTAB67 PO; +NAPR220C22 PO; -NAPR220T95 PO; +NEXI20CA PO; -NORC5TAB PO; -PRED20 PO; +TRAM50TA PO; +ZINC10LO4 PO
[2016-08-06 14:35] LABS: APTT (PATIENT) 29.6 SEC (24.3-30.1); INTERNATIONAL NORMALIZED RATIO 0.9 RATIO; PROTHROMBIN TIME - PATIENT 10.2 SEC (9.8-11.6)
[2016-08-06 15:50] LABS: AUTOMATED NEUTROPHIL # 2.7 TH/MM3 (1.8-7.7); BASOPHIL # 0.1 TH/MM3 (0-0.2); EOSINOPHIL # 0.2 TH/MM3 (0-0.4); EOSINOPHIL % 3.7 % (0.0-4.0); HEMATOCRIT 39.5 % (35.0-46.0); HEMO FLAGS DIFF FINAL; LYMPH % 29.9 % (9.0-44.0); LYMPHOCYTE # 1.5 TH/MM3 (1.0-4.8); MEAN CELL VOLUME 85.7 FL (80.0-100.0); MEAN CORPUSCULAR HEMOGLOBIN 28.6 PG (27.0-34.0); MEAN CORPUSCULAR HGB CONC 33.3 % (32.0-36.0); MONO % 12.8 % (0.0-8.0); NEUT % 52.6 % (16.0-70.0); PLATELET COUNT 311 TH/MM3 (150-450); RED BLOOD COUNT 4.61 MIL/MM3 (4.00-5.30); RED CELL DISTRIBUTION WIDTH 13.6 % (11.6-17.2); WHITE BLOOD COUNT 5.1 TH/MM3 (4.0-11.0)
== END ==
LOC: PLAB 11:47
PROVIDERS: ATTEND Family Medicine
DX: M54.17 Radiculopathy, lumbosacral region (principal)
CPT/HCPCS: 36415; 85025; 85610; 85730

== ENCOUNTER → 2016-08-07 | Outpatient (CLI) | payer MEDICARE ==
--- NOTE | 2016-08-07 17:49 | RADRPT ---
EXAM DATE/TIME: 08/07/2016 12:39 [facility] COMPARISON : No previous studies available for comparison. INDICATIONS : Patient with a history of L4-L5 facet synovial cyst. HISTORY OF PRESENT ILLNESS: Radiculopathy involving the right lower extremity with synovial cyst at L4-L5 causing impingement. Th e cyst aspiration requested. PAST MEDICAL HISTORY : 1. Hypertension. 2. Hypercholesterolemia. 3. Pancreatitis. 4. Right renal cell carcinoma PAST SURGICAL HISTORY : 1. Right laparascopic nephrectomy 2. Cholecystectomy. SOCIAL HISTORY : Social alcohol use. ALLERGIES: 1. Sulfa IMAGING STUDIES: MRI of the lumbar spine July 24, 2016 from [facility] was reviewed. These images reveal a syn ovial cyst projecting anteriorly into the central canal from the L4-5 facet on the right. This genera concetta neural impingement. Facet arthropathy changes include bony hypertrophy and posterior bridging ost eophytes which prevent percutaneous access into the facet joint. ASSESSMENT: Synovial cyst involving the facets at L4-L5 on the right. Regretfully large posterior bridging osteop hytes at the facet joint block any percutaneous access into that facet joint to allow therapy. PLAN: The unable to perform percutaneous therapy of this synovial cyst as detailed above. I spoke with Dr. Chow concerning this. TIME SPENT: 15 mins Bharat Evans Jr., MD on August 07, 2016 at 17:42 Board Certified Radiologist. This report was verified electronically.
== END ==
LOC: HRAD 11:37
PROVIDERS: ATTEND Family Medicine
DX: M71.38 Other bursal cyst, other site (principal)

== ENCOUNTER 2016-08-28 12:56 | Inpatient (IN) | payer MEDICARE ==
[~2016-08-28] VITALS: Ht 157.5 cm; Wt 77.7 kg
[~2016-08-28 12:56] MED LIST changes: -HYDR-3366 PO; -HYDR-3516; -NEXI20CA PO
[2016-08-28] MEDS ORDERED: NEXI20CA PO (13:25)
[2016-08-31] MEDS ORDERED: VANCOMYCIN HCL 1000 MG VIAL ONE (06:46)
[2016-08-31] MEDS ORDERED: THROMBIN (TOPICAL) 5,000 UNIT VIAL ONE (06:46)
[2016-08-31] MEDS ORDERED: GELFOAM SIZE 100 ONE ×2 (06:47→07:20)
[2016-08-31] MEDS ORDERED: ACETAMINOPHEN 1000 MG/100 ML VIAL IV ONE (07:12)
[2016-08-31 07:23] VITALS: BP 144/78; PULSE 63; RESP 18; TEMP 98; O2SAT 96
[2016-08-31] MEDS ORDERED: METOPROLOL TARTRATE 25 MG TAB PO PRN (07:30)
[2016-08-31] MEDS ORDERED: CHLORHEXIDINE GLUCONATE 2 % 1 PACK (2 CLOTHS) TOPICAL PRN (07:30)
[2016-08-31] MEDS ORDERED: LACTATED RINGER'S 1000 ML IV PRN (07:30)
[2016-08-31] MEDS ORDERED: POVIDONE IODINE 5% (ANTISEPSIS KIT) 4 APPLICATIONS EACH NARE PRN (07:30)
[2016-08-31] MEDS ORDERED: VANCOMYCIN HCL 1000 MG ON-CALL/NS 250 ML IV SCH ×2 (07:30)
[2016-08-31] MEDS ORDERED: SODIUM CHLOR 0.9% 1000 ML INJ 1,000 ML IV SCH (07:30)
[2016-08-31] MEDS ORDERED: SODIUM CHLORID 0.9% 500 ML IV PRN (07:30)
[2016-08-31] MEDS ORDERED: INSULIN HUMAN REGULAR 1,000 UNITS/10 ML VIAL SQ PRN (07:30)
[2016-08-31] MEDS ORDERED: MIDAZOLAM HCL 2 MG/2 ML VIAL ONE (08:09)
[2016-08-31] MEDS ORDERED: FAMOTIDINE 20 MG/2 ML VIAL ONE (08:09)
[2016-08-31] MEDS ORDERED: PROPOFOL 200 MG/20 ML AMP IV ONE (08:39)
[2016-08-31] MEDS ORDERED: NEOSTIGMINE 3 MG/3 ML SYR IV ONE (08:40)
[2016-08-31] MEDS ORDERED: ePHEDrine/NS 25 MG/5 ML SYR IV ONE (08:40)
[2016-08-31] MEDS ORDERED: PHENYLEPH/NS 1000 MCG/10 ML SYR IV ONE (08:40)
[2016-08-31] MEDS ORDERED: LACTATED RINGER'S 1000 ML INJ 1,000 ML IV ONE (08:41)
[2016-08-31] MEDS ORDERED: ONDANSETRON HCL 4 MG/2 ML VIAL IV PUSH ONE (08:41)
[2016-08-31] MEDS: BUPIVACAINE/EPINEPHRINE 0.5% 50 ML VIAL ONE ×2 (09:28→10:13)
[2016-08-31] MEDS ORDERED: methylPREDNISolone ACETATE 40 MG/ML VIAL I-LESIONAL ONE (10:12)
[2016-08-31] MEDS ORDERED: HYDR-3366 PO (10:48)
[2016-08-31] MEDS ORDERED: DO NOT ADM ANY ANTICOAGULANT DRUGS PRN (10:50)
--- NOTE | 2016-08-31 10:53 | PD.OP ---
cc: Gordon Chow MD Operative Report Date of Surgery: Aug 31, 2016 Preoperative Diagnosis: Right L4-5 synovial cyst with associated spinal and foraminal stenosis with the back pain and intractable radiculopathy Postoperative Diagnosis: Same Procedure: Right L4-5 hemilaminotomy with medial facetectomy and synovial cyst resection; microsurgical technique Anesthesia: Gen. endotracheal by Nino Jeffers Surgeon: Carlos Gonzalez M.D. Broaching Machine Repairer(s): Ginny Capellan Operation and Findings: Following administration of general endotracheal anesthesia, patient received Ancef intravenously. Her neck was maintaining neutral position with a Horner collar during intubation and the duration of the surgery. Sequential compression devices were placed for DVT prophylaxis. She was then turned in prone position on Rory frame and the Kane table and all pressure points adequately padded. The lumbar region was then shaved and prepped with a Betadine and ChloraPrep. Sterile draping undertaken with Ioban. Midline incision overlying the L4-5 level was then made after infiltrating the skin with 0.5% Marcaine with epinephrine solution. The skin incision was made extending down through the fascia and then using the subperiosteal plane on the right side the muscular attachments to the spinous process and lamina were detached. Intraoperative fluoroscopy was used for level confirmation and further dissection undertaken using microtechnique with microscope magnification. The inferior portion of the L4 and superior portion of the L5 lamina were then drilled out and the underlying ligamentum flavum also removed. There was some facet arthropathy noted in the medial portion of facet was also resected and the lateral recess decompressed. Synovial cyst with the inflammatory tissue and clotted blood was evident which was resected and the lateral recess and foramen completely decompressed. The dura was intact and no CSF leak was encountered. Epidural venous stasis which he with the bipolar cautery along with Gelfoam and thrombin and bone wax used at the laminotomy edges for hemostasis. The thecal sac was then gently retracted with a nerve root retractor and an extruded disc fragment was identified which was inferiorly migrated. Fragments were removed with pituitary forceps and the nerve root impingement along with thecal sac compression decompressed. The area was then copiously irrigated and the epidural space injected with 40 mg of Depo-Medrol. The retractors removed and the muscle fascia proximal using 2-0 Vicryl interrupted stitches. 3-0 Vicryl subcuticular stitches were also placed in an interrupted fashion and planned skin closure was with Mastisol and Steri- Strips. A sterile dressing was then applied and the patient then turned in the supine position and extubated and taken to recovery room in stable condition. There were no intraoperative complications and all sponge and needle count was correct at the end of the procedure. Estimated blood loss about 20 ml. Carlos Gonzalez MD Aug 31, 2016 10:53
[2016-08-31] MEDS ORDERED: fentaNYL CITRATE 250 MCG/5 ML AMP ONE (11:00)
[2016-08-31] MEDS ORDERED: ACETAMINOPHEN/HYDROcodone 325 MG/10 MG TAB PO PRN (12:15)
[2016-08-31] MEDS ORDERED: ONDANSETRON HCL 4 MG/2 ML VIAL IV PUSH PRN (12:15)
--- NOTE | 2016-08-31 12:29 | RADRPT ---
EXAM DATE/TIME: 08/31/2016 09:12 [facility] COMPARISON: No previous studies available for comparison. INDICATIONS : L4-L5 hemilaminectomy. Level localization. MEDICAL HISTORY : None. SURGICAL HISTORY : None. ENCOUNTER: Initial ACUITY: 1 day PAIN SCORE: Non-responsive. LOCATION: Lumbar spine. FINDINGS: Metallic probe is directed at L4-L5, assuming 5 lumbar-type vertebral bodies. Degenerative changes a re seen at L5-S1. CONCLUSION: Probe at L4-L5. Raulito Pennington MD FACR on August 31, 2016 at 12:26 Board Certified Radiologist. This report was verified electronically.
[2016-08-31 13:00] VITALS: BP 142/74; PULSE 69; RESP 16; TEMP 97.5; O2SAT 96
== END 2016-08-31 13:06 | disposition home or self-care (01) | DRG 520 ==
LOC: HSDI 08-31 06:32
PROVIDERS: ADMIT Neurological Surgery; ATTEND Neurological Surgery
PROC: 00NY0ZZ Release Lumbar Spinal Cord, Open Approach (ICD-10-PCS; 2016-08-31)
PROC: 0SB20ZZ Excision of Lumbar Vertebral Disc, Open Approach (ICD-10-PCS; principal; 2016-08-31 08:37)
DX: M48.06 Spinal stenosis, lumbar region (principal); M54.16 Radiculopathy, lumbar region; M71.38 Other bursal cyst, other site
CPT/HCPCS: 72020; 76000; 86850; 86900; 86901; 86920; J0131; J1030; J2250; J2370; J2405; J2710; J3010; J3370; J7050; J7120; L0150

== ENCOUNTER → 2016-08-28 | Outpatient (CLI) | payer MEDICARE ==
[~2016-08-28] MED LIST changes: -CIPR250T52 PO; -TRAM50TA PO
[2016-08-28 13:19] LABS: AUTOMATED NEUTROPHIL # 2.4 TH/MM3 (1.8-7.7); BASOPHIL # 0.1 TH/MM3 (0-0.2); BASOPHIL % 1.8 % (0.0-2.0); EOSINOPHIL # 0.2 TH/MM3 (0-0.4); HEMATOCRIT 41.5 % (35.0-46.0); HEMO FLAGS DIFF FINAL; LYMPH % 32.6 % (9.0-44.0); LYMPHOCYTE # 1.6 TH/MM3 (1.0-4.8); MEAN CORPUSCULAR HEMOGLOBIN 28.4 PG (27.0-34.0); MEAN CORPUSCULAR HGB CONC 33.4 % (32.0-36.0); NEUT % 49.6 % (16.0-70.0); PLATELET COUNT 258 TH/MM3 (150-450); RED BLOOD COUNT 4.88 MIL/MM3 (4.00-5.30); RED CELL DISTRIBUTION WIDTH 13.9 % (11.6-17.2); WHITE BLOOD COUNT 4.9 TH/MM3 (4.0-11.0)
[2016-08-28 13:33] LABS: APTT (PATIENT) 29.2 SEC (24.3-30.1); INTERNATIONAL NORMALIZED RATIO 0.9 RATIO; PROTHROMBIN TIME - PATIENT 10.4 SEC (9.8-11.6)
[2016-08-28 13:39] LABS: BLOOD, URINE NEG (NEG); COMMENT (UR) CULT NOT INDICATED; CULTURE IF INDICATED CULT NOT INDICATED; GLUCOSE,URINE NEG (NEG); KETONE, URINE NEG (NEG); MUCUS URINE FEW /lpf (OCC); NITRITE,URINE NEG (NEG); URINE COLOR YELLOW (YELLW/STRAW)
[2016-08-28 13:47] LABS: ANION GAP 5 MEQ/L (5-15); BICARBONATE 29.1 MEQ/L (21.0-32.0); BLOOD UREA NITROGEN 30 MG/DL (7-18); CHLORIDE 106 MEQ/L (98-107); POTASSIUM 4.4 MEQ/L (3.5-5.1); SODIUM (NA) 140 MEQ/L (136-145)
[2016-08-28 13:55] LABS: ALKALINE PHOSPHATASE 115 U/L (45-117); ALT (GPT) 51 U/L (10-53); AST (GOT) 21 U/L (15-37); GLOMERULAR FILTRATION RATE 46 ML/MIN (>89); GLUCOSE,FASTING 92 MG/DL (74-99); TOTAL BILIRUBIN ADULT 0.4 MG/DL (0.2-1.0)
--- NOTE | 2016-08-28 14:36 | RADRPT ---
EXAM DATE/TIME: 08/28/2016 13:46 [facility] COMPARISON: No previous studies available for comparison. INDICATIONS : Pre-op cyst removal. Evaluate for pneumonia, pneumothorax, and any communicable diseases. MEDICAL HISTORY : None. SURGICAL HISTORY : None. ENCOUNTER: Initial ACUITY: 1 day PAIN SCORE: 0/10 LOCATION: Bilateral chest FINDINGS: The heart is normal. The pulmonary vascular pattern is normal. The lungs are clear. No pneumothorax i s noted. Degenerative changes and scoliosis of the thoracolumbar spine are noted. CONCLUSION: No acute cardiopulmonary disease. Degenerative changes and scoliosis of the thoracolumbar spine. Dany Pickard MD on August 28, 2016 at 14:32 Board Certified Radiologist. This report was verified electronically.
--- NOTE | 2016-08-29 23:49 | EKG ---
Date Performed: 08/28/2016 Time Performed: 13:14:09 PTAGE: 66 years EKG: SINUS BRADYCARDIA POSSIBLE LEFT ATRIAL ENLARGEMENT LEFT BUNDLE BRANCH BLOCK ABNORMAL ECG PREVIOUS TRACING : 10/26/2010 04.43 Compared to prior tracing no significant change DOCTOR: Sean Hernandez Interpretating Date/Time 08/29/2016 23:48:53
== END ==
LOC: CPRE 12:52
PROVIDERS: ATTEND Neurological Surgery
DX: Z01.812 Encounter for preprocedural laboratory examination (principal); Z01.810 Encounter for preprocedural cardiovascular examination; Z01.811 Encounter for preprocedural respiratory examination; M54.40 Lumbago with sciatica, unspecified side; G90.09 Other idiopathic peripheral autonomic neuropathy; R94.31 Abnormal electrocardiogram [ECG] [EKG]; Z79.01 Long term (current) use of anticoagulants
CPT/HCPCS: 36415; 71020; 80053; 81001; 85025; 85610; 85730; 93005

== ENCOUNTER 2017-08-22 06:56 | Emergency (ER) | payer MEDICARE ==
[~2017-08-22] VITALS: Ht 157.5 cm; Wt 78.3 kg
[~2017-08-22 06:56] MED LIST changes: -HYDR-4107 PO; -NAPR220C22 PO; +NEXI20CA PO
[2017-08-22 06:59] VITALS: BP 185/92; PULSE 63; RESP 18; TEMP 97.6; O2SAT 95
--- NOTE | 2017-08-22 07:25 | PD ---
HPI Chief Complaint: Hypertension Time Seen by Provider: 07:12 Travel History International Travel<30 days: No Contact w/Intl Traveler<30days: No Traveled to known affect area: No History of Present Illness HPI This is a 67-year-old female who presents to the emergency department with high blood pressure that has been going on for 2 days in the 180s and 190 systolic, constant, moderate severity associated with a dull headache that started on the left side of her head but has moved to the right side of her head behind her ear. She denies any chest pain or trouble breathing. The headache was gradual in onset. She was most concerned with her blood pressure and not the headache. She has a little bit of blurry vision and does not feel right. She is under a lot of stress because she has an art exhibit coming up tomorrow for which she feels like she is not prepared. She has never been on any medication for blood pressure. PFSH Past Medical History Arthritis: Yes (RIGHT great toe) Blood Disorders: No Anxiety: No Depression: No Heart Rhythm Problems: No Cancer: Yes ( RIGHT RENAL CA) Cardiac Catheterization: Yes ([address] 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, DDD) Psychiatric: No Reproductive: No Respiratory: No Myocardial Infarction: No Pancreatitis: Yes Thyroid Disease: No Tetanus Vaccination: > 5 Years Influenza Vaccination: Yes ?: Not Menopausal: Yes Past Surgical History Abdominal Surgery: Yes (gall bladder removed) AICD: No Cardiac Surgery: No Cholecystectomy: Yes Coronary Artery Bypass Graft: No Ear Surgery: No Endocrine Surgery: No Eye Surgery: No Genitourinary Surgery: Yes (RIGHT NEPHRECTOMY) Gynecologic Surgery: No Joint Replacement: No Oral Surgery: Yes (TONSILLECTOMY) Pacemaker: No Thoracic Surgery: No Tonsillectomy: Yes Other Surgery: Yes Social History Alcohol Use: Yes (SOCIAL) Tobacco Use: No Substance Use: No Allergies-Medications (Allergen,Severity, Reaction): Coded Allergies: Sulfa (Sulfonamide Antibiotics) (Unverified Allergy, Severe, RASH, 08/22/17 ) Reported Meds & Prescriptions Reported Meds & Active Scripts Active No Active Prescriptions or Reported Medications Review of Systems Except as stated in HPI: all other systems reviewed are Neg Physical Exam Narrative GENERAL:Well appearing, no acute distress SKIN: Focused skin assessment warm and dry. HEAD: Atraumatic. Normocephalic. EYES: Pupils equal and round. No injection or drainage. ENT: Moist mucous membranes NECK: Trachea midline. CARDIOVASCULAR: Regular rate and rhythm. No murmur appreciated. RESPIRATORY: Clear to auscultation. Breath sounds equal bilaterally. GASTROINTESTINAL: Abdomen soft, non-tender, nondistended. MUSCULOSKELETAL: No obvious deformities. NEUROLOGICAL: Awake and alert. No obvious cranial nerve deficits. No dysarthria or aphasia. No upper or lower extremity drift. No upper extremity ataxia. Visual singh intact. PSYCHIATRIC: Appropriate mood and affect; insight and judgment normal. Data Data Last Documented VS Vital Signs Date Time Temp Pulse Resp B/P (MAP) Pulse Ox O2 Delivery O2 Flow Rate FiO2 08/22/17 08:02 55 16 164/84 (110) 95 Room Air 08/22/17 06:59 97.6 Orders Orders Basic Metabolic Panel (Bmp) (08/22/17 07:20) Electrocardiogram (08/22/17 ) Amlodipine (Norvasc) (08/22/17 07:30) Ondansetron Odt (Zofran Odt) (08/22/17 07:45) Labs Laboratory Tests Test 08/22/17 07:25 Blood Urea Nitrogen 30 MG/DL Creatinine 1.00 MG/DL Random Glucose 106 MG/DL Calcium Level 8.6 MG/DL Sodium Level 143 MEQ/L Potassium Level 3.8 MEQ/L Chloride Level 111 MEQ/L Carbon Dioxide Level 24.2 MEQ/L Anion Gap 8 MEQ/L Estimat Glomerular Filtration Rate 55 ML/MIN MDM Medical Decision Making Medical Screen Exam Complete: Yes Emergency Medical Condition: Yes Interpretation(s) BUN is slightly elevated otherwise labs are reassuring EKG: Left bundle branch block Differential Diagnosis Hypertension, hypertensive urgency, hypertensive emergency, intracranial hemorrhage Narrative Course This is a 67-year-old female who presents to the emergency department with high blood pressure and dull headache. She has a normal neurologic exam. Given her appearance and the description of her symptoms I doubt intracranial hemorrhage. BMP demonstrates normal renal function and EKG demonstrates left bundle branch block. I think patient can safely be discharged home on amlodipine and follow-up with her primary care physician. Diagnosis Primary Impression: Hypertensive urgency Patient Instructions: General Instructions Additional Instructions: If you develop severe chest pain, shortness of breath, sweating, lightheadedness , dizziness or difficulty breathing return to the emergency department immediately. Followup with your primary care physician in 2-3 days if your symptoms are not resolved. Med/Other Pt SpecificInfo: Prescription(s) given Scripts Amlodipine (Amlodipine) 5 Mg Tab 5 MG PO DAILY for Blood Pressure Management, #15 TAB 0 Refills Prov: Tejal España MD 08/22/17 Disposition: DISCHARGE HOME Condition: Stable Tejal España MD Aug 22, 2017 07:25
[2017-08-22] MEDS ORDERED: amLODIPine BESYLATE 5 MG TAB PO ONE (07:30)
[2017-08-22] MEDS ORDERED: ONDANSETRON ODT 4 MG TAB PO ONE (07:45)
[2017-08-22 07:51] LABS: CALCIUM 8.6 MG/DL (8.5-10.1)
[2017-08-22 07:52] LABS: BICARBONATE 24.2 MEQ/L (21.0-32.0)
[2017-08-22 08:02] VITALS: BP 164/84; PULSE 55; RESP 16; O2SAT 95
[2017-08-22] MEDS ORDERED: AMLO5TAB2 PO (08:20)
--- NOTE | 2017-08-22 18:34 | EKG ---
Date Performed: 08/22/2017 Time Performed: 07:27:41 PTAGE: 67 years EKG: SINUS BRADYCARDIA POSSIBLE LEFT ATRIAL ENLARGEMENT MARKED LEFT AXIS DEVIATION LEFT BUNDLE B RANCH BLOCK ABNORMAL ECG Since the PREVIOUS TRACING , no significant change noted PREVIOUS TRACIN08/28/2016 13.14 DOCTOR: Keyla Beach Interpretating Date/Time 08/22/2017 18:31:55
== END 2017-08-22 08:35 | disposition home or self-care (01) ==
LOC: PHED 06:56
DX: I16.0 Hypertensive urgency (principal); I44.7 Left bundle-branch block, unspecified; R51 Headache; H53.8 Other visual disturbances; R94.31 Abnormal electrocardiogram [ECG] [EKG]; E78.00 Pure hypercholesterolemia, unspecified; Z87.19 Personal history of other diseases of the digestive system; Z86.79 Personal history of other diseases of the circulatory system; Z87.39 Personal history of other diseases of the musculoskeletal system and connective tissue; Z86.69 Personal history of other diseases of the nervous system and sense organs
CPT/HCPCS: 80048; 93005; 99284